=== PATIENT | female | born 1945 | race Two or more races ===

== ENCOUNTER 2017-01-02 10:12 | Emergency (ER) | payer MEDICARE ==
[2017-01-02 10:34] VITALS: BP 152/65; PULSE 84; RESP 20; TEMP 98.1
--- NOTE | 2017-01-02 11:53 | ED ---
General Adult HPI - General Chief complaint: Recheck/Abnormal Lab/Rx Stated complaint: SHOULDER, HIP INJURY FROM FALL Time Seen by Provider: 01/02/17 11:05 Source: patient Mode of arrival: wheelchair Limitations: no limitations, physical limitation - History of Present Illness Initial comments: This 71-year-old white female presents with with the complaint of right shoulder pain. She also has some pain into her right pelvis posteriorly. She apparently was hit by a horse 3 days ago. She states that she was knocked to the ground and developed her current injury. She was seen at [facility] 3 days ago and they did x-rays of her right hip, pelvis, chest, right humerus, and right shoulder. They did note that she has a right proximal humeral fracture and put her in a sling. They did prescribe some Parker for her but she states that she has still had severe pain and this does not seem to be working very well. She is only been taking 1 Parker at a time. She states that she has been having problems ambulating and can only ambulate with her ' s assistance. This was worse on Monday and seems to be improving. She called the orthopedic doctor's office this morning and they sent her to the emergency department for further evaluation and treatment. She denies any head injury, headache, neck pain, or back pain. No other complaints or modifying factors. - Related Data Home Medications Medication Instructions Recorded Confirmed Docusate [Colace] 100 mg PO TID 01/02/17 01/02/17 Hydrocodone/Acetaminophen [Parker 1 tab PO Q4HR PRN 01/02/17 01/02/17 7.5-325] Ibuprofen [Motrin] 600 mg PO Q8HR PRN 01/02/17 01/02/17 metFORMIN HCL [metFORMIN HCL ER] 1,000 mg PO DAILY 01/02/17 01/02/17 Allergies Allergy/AdvReac Type Severity Reaction Status Date / Time No Known Allergies Allergy Verified 01/02/17 11:14 Review of Systems ROS Statement: Those systems with pertinent positive or pertinent negative responses have been documented in the HPI. ROS Other: All systems not noted in ROS Statement are negative. Past Medical History Past Medical History: Diabetes Mellitus History of Any Multi-Drug Resistant Organisms: None Reported Past Surgical History: Hysterectomy Past Psychological History: No Psychological Hx Reported Smoking Status: Never smoker Past Alcohol Use History: None Reported Past Drug Use History: None Reported General Exam - General Exam Comments Initial Comments: GENERAL: The patient is well nourished and well hydrated. VITAL SIGNS: Heart rate, blood pressure, respiratory rate reviewed as recorded in nurse's notes. EYES: Pupils are round and reactive. Extraocular movements are intact. No conjunctival / lid redness or swelling. ENT: No external evidence of injury, swelling, or ecchymosis. Airway is patent. Throat is clear. NECK: Nontender. No swelling or evidence of injury. No subcutaneous emphysema. Trachea is midline. No thyroid mass. HEART: Regular rate and rhythm. Good peripheral pulses. LUNGS/CHEST: Breath sounds clear and equal bilaterally. No rales, rhonchi, or wheezes. No ecchymosis, subcutaneous emphysema, or tenderness. ABDOMEN: Abdomen soft without tenderness. No palpable masses or organomegaly. No peritoneal signs. No abdominal wall swelling or ecchymosis. EXTREMITIES: There is tenderness and swelling noted upon palpation of the right proximal humerus. Attempted range of motion was not completed due to pain. There also is some tenderness in the right posterior pelvis. Is no direct tenderness over the right hip. Normal muscle tone and function. No thoracolumbar tenderness. NEUROLOGIC: Sensation is grossly intact. Cranial nerve exam reveals face is symmetrical, tongue is midline, speech is clear. SKIN: There is significant ecchymosis noted to the right mid humerus. There is some right leg ecchymosis noted as well. No induration or masses noted. PSYCHIATRIC: Alert and oriented. Appropriate behavior and judgment. Limitations: no limitations, physical limitation Course Vital Signs 01/02/17 10:30 Temperature 98.1 F Pulse Rate 84 Respiratory 20 Rate Blood Pressure 152/65 O2 Sat by Pulse 98 Oximetry Medical Decision Making - Medical Decision Making The patient was seen and examined. All diagnostics were reviewed. They bring in a disc from [facility] and these x-rays were reviewed. There is an obvious right proximal humeral neck fracture with displacement. The humerus otherwise does not appear to have any fractures. The chest x-ray and right hip x-rays did not show any acute processes. On the AP pelvis, there appears to potentially be a fracture. The case is discussed with Dr. Adan and he requests that the patient have a computed tomography scan of the right shoulder and the AP pelvis. The patient refuses any pain medications while in the emergency department. The computed tomography scan of the right shoulder shows the obvious fracture. The computed tomography scan of the pelvis shows the possibility of a superior iliac spine and possible sacral fracture which appears overall nondisplaced and minimal. Dr. Adan does want to see her in the office this afternoon so she will be discharged. Final radiologic report is pending. We would like to get her over to his office as soon as possible for further evaluation. The report will be available by the time she sees him in the office. Disposition Clinical Impression: Right humeral fracture, Pelvic fracture Disposition: HOME SELF-CARE Condition: Good Additional Instructions: Please follow-up with Dr. Adan today as discussed. Please go directly to their office and he will for treatment in this afternoon and evaluated here for possible surgery in the near future. Referrals: None,Stated [Primary Care Provider] - 1-2 days Mikhail Casillas MD [STAFF PHYSICIAN] - 1-2 days Time of Disposition: 12:52
--- NOTE | 2017-01-02 12:51 | CT ---
EXAMINATION TYPE: CT pelvis wo con DATE OF EXAM: 01/02/2017 COMPARISON: NONE HISTORY: Fall today with Right sided pain CT DLP: 1026 mGycm Automated exposure control for dose reduction was used. Unenhanced CT of the pelvis was performed. Bone and soft tissue window settings are submitted. FINDINGS: Nondisplaced fracture of the right hemisacrum seen best on images 12 through 18. No additional fractu res are evident. Degenerative changes bilateral hip joint spaces. Trochanteric spur formation. Severe degenerative change lumbar spine. Mild distention small bowel loops reflect mild ileus. IMPRESSION: Nondisplaced fracture of the right hemisacrum.
--- NOTE | 2017-01-02 12:54 | ED ---
Disposition Clinical Impression: Right humeral fracture, Pelvic fracture Disposition: HOME SELF-CARE Condition: Good Instructions: Proximal Humerus Fracture (ED) Additional Instructions: Please follow-up with Dr. Adan today as discussed. Please go directly to their office and he will for treatment in this afternoon and evaluated here for possible surgery in the near future. Referrals: None,Stated [Primary Care Provider] - 1-2 days Mikhail Casillas MD [STAFF PHYSICIAN] - 1-2 days
--- NOTE | 2017-01-02 12:55 | CT ---
EXAMINATION TYPE: CT shoulder RT wo con DATE OF EXAM: 01/02/2017 COMPARISON: NONE HISTORY: Fall today Right sided shoulder pain CT DLP: [address] of the right shoulder with reconstruction imaging. TECHNIQUE: Unenhanced CT of the right shoulder was performed with bone and soft tissue window setting s submitted in the axial coronal and sagittal planes. At a separate workstation 3-D TR imaging was o btained. FINDINGS: Partially comminuted partially impacted fracture involving the right humeral neck with exte nsion into the greater humeral tuberosity. Proximal migration of the distal fracture component with r otation of humeral head. Fracture displacement of 1.5 cm. Hemarthrosis is noted. No additional fractu res are identified within the [id number]. IMPRESSION: 1. Moderately comminuted and partially impacted fracture of the proximal right humerus as discussed.
== END 2017-01-02 13:13 | disposition home or self-care (01) ==
LOC: EC 10:12
DX: S42.201A Unspecified fracture of upper end of right humerus, initial encounter for closed fracture (principal); S32.9XXA Fracture of unspecified parts of lumbosacral spine and pelvis, initial encounter for closed fracture; S80.11XA Contusion of right lower leg, initial encounter; E11.9 Type 2 diabetes mellitus without complications; Z79.84 Long term (current) use of oral hypoglycemic drugs; Z79.899 Other long term (current) drug therapy; W55.12XA Struck by horse, initial encounter; Z53.20 Procedure and treatment not carried out because of patient's decision for unspecified reasons
CPT/HCPCS: 72192; 99284

== ENCOUNTER → 2017-01-02 | Outpatient (CLI) | payer MEDICARE ==
[2017-01-02 16:15] LABS: EKG EKG PERFORMED
[2017-01-02 16:51] LABS: Anion Gap 13 mmol/L; Carbon Dioxide 21 mmol/L (22-30); Chloride 103 mmol/L (98-107); Potassium 4.2 mmol/L (3.5-5.1); Sodium 137 mmol/L (137-145)
[2017-01-02 17:01] LABS: INR 0.9 (<1.2); Prothrombin Time 9.7 sec (9.0-12.0)
[2017-01-02 17:39] LABS: Partial Thromboplastin Time 21.6 sec (22.0-30.0)
[2017-01-02 17:44] LABS: Basophils % (A) 0 %; CHCM 31.7; Eosinophils # (A) 0.3 k/uL (0-0.7); Eosinophils % (A) 3 %; HCT 34.9 % (34.0-46.0); HDW 2.37; HGB 10.8 gm/dL (11.4-16.0); Luc # (Auto) 0.16; Luc % (Auto) 2; Lymphocytes % (A) 20 %; MCH 28.6 pg (25.0-35.0); MCHC 31.1 g/dL (31.0-37.0); Mean Platelet Volume 8.3; Monocytes # (A) 0.6 k/uL (0-1.0); Monocytes % (A) 6 %; Neutrophils # (A) 7.1 k/uL (1.3-7.7); Neutrophils % (A) 69 %; RBC 3.79 m/uL (3.80-5.40); RDW 13.7 % (11.5-15.5); WBC 10.3 k/uL (3.8-10.6); WBC (Perox) 10.16
== END | disposition home or self-care (01) ==
LOC: LABPAT 15:30
PROVIDERS: ATTEND Orthopaedic Surgery
DX: Z01.810 Encounter for preprocedural cardiovascular examination (principal); S42.231D 3-part fracture of surgical neck of right humerus, subsequent encounter for fracture with routine healing; Z79.01 Long term (current) use of anticoagulants; Z01.812 Encounter for preprocedural laboratory examination
CPT/HCPCS: 36415; 80051; 85025; 85610; 85730; 93005

== ENCOUNTER 2017-01-03 07:30 | Inpatient (IN) | payer MEDICARE ==
--- NOTE | 2017-01-02 17:42 | HP ---
HISTORY AND PHYSICAL CHIEF COMPLAINT: Right shoulder and right hip pain. HISTORY OF PRESENT ILLNESS: The patient is a 71-year-old retired female who presents with right shoulder and hip pain after an injury on 12/30/2016. She was charged by her horse at her home and thrown to the ground. She denies loss of consciousness. Initially, she was seen at [facility] Emergency Room and was placed in a sling. She presented to [facility] ER today for further evaluation. She had a CT scan of her pelvis and shoulder performed. PAST MEDICAL HISTORY: Significant for type 2 diabetes. PAST SURGICAL HISTORY: Significant for hysterectomy. CURRENT MEDICATIONS: [place], metformin, ibuprofen. ALLERGIES: She denies drug allergies. FAMILY HISTORY: Negative. SOCIAL HISTORY: Negative for current tobacco or alcohol use. REVIEW OF SYSTEMS: Sixteen point review of systems otherwise reviewed and is noncontributory. PHYSICAL EXAMINATION: On examination, the patient is approximately 5 foot 6, 200 pounds of endomorphic habitus. She is alert and oriented x4. She is nontender about the cervical spine with pain with active motion. On examination of her right shoulder, she has large anterior swelling and ecchymosis. She is tender over the proximal humerus. She is nontender about the right wrist and elbow. Her distal neurovascular exam appears intact in the right upper extremity. No point tenderness about the left upper extremity is noted. She has painless passive motion of right hip. She is mildly tender over the right sacroiliac joint. The pelvis is stable to external rotation stress. Her distal neurovascular exam appears intact in the lower extremities. IMAGING PROCEDURE: X-rays to include 2 views of the right shoulder obtained in the office show a comminuted/displaced three-part proximal right proximal humerus fracture. CT scan of the pelvis shows a nondisplaced right sacral ala fracture. The pelvic ring appears intact. CT scan of the right shoulder shows a comminuted 3 part proximal humerus fracture with significant displacement. IMPRESSION: 1. Displaced/comminuted right three-part proximal humerus fracture. 2. Right sacral ala fracture. 3. Kbo-msqzuxv-clmssuxbb diabetes. 4. Increased body mass index. RECOMMENDATIONS: I talked to the patient and her regarding her treatment options. With the degree of initial comminution and displacement of her three-part proximal humerus fracture, I recommend proceeding with surgery. Operative options were discussed to include open reduction and internal fixation versus hemiarthroplasty versus reverse total shoulder arthroplasty. We will likely proceed with right reverse total shoulder arthroplasty. Risks and benefits were discussed at length in layman's terms. We will institute DVT prophylaxis postoperatively. MMODL / IJN: [id number] /
[~2017-01-03 07:30] MED LIST: ACETAMINOPHEN TAB 500 MG TAB PO ONE; MELOXICAM 7.5 MG TAB PO ONE; TRANEXAMIC ACID 1,000 MG in SODIUM CHLORIDE 0.9% 100 ML IVPB ONE; ceFAZolin 2 GM in SODIUM CHLORIDE 0.9% 100 ML IVPB ONE; ceFAZolin IN SWFI 2 GM/20 ML SYRINGE IVP ONE
[2017-01-03] MEDS ORDERED: LIDOCAINE 1% 20 ML VIAL (10MG/ML) FOR IV START INTRADERMA ONE (14:16)
[2017-01-03] MEDS ORDERED: MIDAZOLAM 2 MG/2 ML VIAL IVP ONE (14:27)
[2017-01-03] MEDS ORDERED: LACTATED RINGERS 1,000 ML IV ONE (14:27)
[2017-01-03] MEDS ORDERED: fentaNYL (PF) 50 MCG/ML 2 ML AMP IVP ONE (14:29)
[2017-01-03 14:38] LABS: Glucose,Whole Blood 107 mg/dL (75-99)
[2017-01-03] MEDS ORDERED: ONDANSETRON 4 MG/2 ML VIAL IVP ONE (14:59)
[2017-01-03] MEDS ORDERED: DEXAMETHASONE SOD PHOSPHATE 10 MG/ML 1 ML VIAL IV ONE (15:00)
[2017-01-03] MEDS ORDERED: ceFAZolin 3,000 MG in SODIUM CHLORIDE 0.9% IRRIGATIO 3,000 ML IRRIGATION ONE (17:14)
[2017-01-03] MEDS ORDERED: HYDROmorphone 0.5 MG/0.5 ML SYRINGE IVP PRN ×2 (18:17)
[2017-01-03] MEDS ORDERED: ONDANSETRON 4 MG/2 ML VIAL IVP PRN (18:17)
[2017-01-03] MEDS ORDERED: SENNOSIDES-DOCUSATE SODIUM 1 EACH TAB PO PRN (18:17)
[2017-01-03] MEDS ORDERED: HYDROcodone/APAP 7.5-325MG 1 EACH TAB PO PRN (18:22)
--- NOTE | 2017-01-03 18:40 | P.OP ---
Date of Procedure: 01/03/17 Preoperative Diagnosis: Displaced right 4 part proximal humerus fracture Postoperative Diagnosis: Same Procedure(s) Performed: Right reverse shoulder arthroplasty Implants: Delta Xtend size 10 cemented long humeral component with size 1 epiphysis, 38+6 articular surface, 38 mm glenosphere with standard base plate. Anesthesia: JOEYA Surgeon: Mikhail Casillas Aerodynamics Teacher #1: Jayden Glaser Estimated Blood Loss (ml): 150 Pathology: other (Humeral head) Condition: stable Disposition: PACU Indications for Procedure: The patient's 71-year-old female who presents after sustaining an injury recently to her right shoulder. She was noted to have a displaced 4 part proximal humerus fracture. A discussion of the risks and benefits of operative intervention versus conservative treatment was made with the patient and her . They opted to proceed with surgery. With the degree of initial displacement and fragmentation, they opted to proceed with reverse shoulder arthroplasty. Risks and benefits of this procedure to include infection, neurovascular injury, development of blood clots, possible component loosening, possible dislocation, and possible need for subsequent procedures was discussed. Informed consent was obtained. Operative Findings: As below Description of Procedure: The patient was brought to the operating room, and after induction of general anesthesia was placed in the beachchair position. The bony prominences were appropriately padded. The right upper extremity was prepped and draped in normal fashion. A deltopectoral incision was then made just lateral to the coracoid process extending approximately 12 cm. Skin was incised sharply. Subcutaneous tissues were divided bluntly. Electrocautery was used for hemostasis. The deltopectoral interval was identified and the cephalic vein was gently retracted laterally with the deltoid. Subdeltoid adhesions were bluntly dissected. A self-retaining retractor was placed. The upper one third of the pectoralis tendon was released with electrocautery to help facilitate exposure. The biceps was identified. It was tenotomized and lateral retract the bicipital groove. The proximal humeral fracture was then dissected into the lesser and greater tuberosities along with the head fragment. The head was extracted. There was significant metaphyseal fragmentation. The glenoid was then exposed. A guidepin was placed into the inferior aspect of the glenoid with slight inferior tilt. The glenoid was then reamed down to bleeding bony surface. The Profore reamer was utilized. The central peg hole was drilled. A standard glenosphere baseplate was then inserted and impacted. 3 locking screws of the appropriate length were then placed with good purchase. They were then locked. A 38 mm glenosphere was then placed and secured. Attention was then paid towards preparing the proximal humerus. The alignment guide was placed along the proximal humeral shaft. I planned on 20 of retroversion. The canal was reamed by hand up to size 10. A trial long size 10 stem was inserted and held in place with the clamp. The height was adjusted to restore appropriate soft tissue tension. A 38 mm +6 trial articular surface was placed. The shoulder was gently reduced. It was taken through range of motion and felt to be stable in flexion and extension with internal and external rotation. I felt there was adequate baptist of soft tissue tension judging off the conjoined tendon. The shoulder was gently dislocated. The trial components were then removed. Cement was then placed in the humeral shaft and pressurized by hand. The final size 12 long humeral stem with a size 1 epiphysis was inserted in approximately 20 of retroversion. Previously predetermined height. This was held in place with the clamp until the cement had sufficiently hardened. Trial reduction was again obtained with a 38 mm +6 trial articular surface. Again I felt there was adequate baptist of soft tissue tension and stability in flexion and extension with internal and external rotation. The shoulder was gently dislocated and the trial articular surface was removed. The final 38 mm +6 articular surface was gently impacted. The shoulder was gently relocated and taken through range of motion and felt to be stable. Pulsatile lavage was utilized. The greater and lesser tuberosity were secured to each other with #2 Ethibond suture. The rotator interval was closed in a similar fashion. The deltopectoral interval was closed with interrupted 2-0 Vicryl sutures. The skin was reapproximated with 3- 0 subcuticular Prolene suture. Steri-Strips were applied. A sterile dressing was applied in addition to a sling. The patient was awoken from general anesthesia and transferred to recovery room in good condition. Blood loss was estimated at 150 mL. No complications were incurred. Sponge and needle counts were correct in the case.
--- NOTE | 2017-01-03 18:45 | XR ---
EXAMINATION TYPE: XR shoulder limited RT DATE OF EXAM: 01/03/2017 COMPARISON: NONE HISTORY: Postop TECHNIQUE: Single view FINDINGS: There is a right shoulder prosthesis. Components appear in anatomic position. IMPRESSION: No complicating process seen.
[2017-01-03 19:01] VITALS: RESP 16
[2017-01-03] MEDS: metFORMIN 500 MG TAB PO SCH (21:31)
[2017-01-03] MEDS: LISINOPRIL-HCTZ 10-12.5 MG 1 EACH TAB PO SCH (21:36)
[2017-01-03] MEDS ORDERED: LATANOPROST 0.005% OPHTH DROPS 2.5 ML BTL RIGHT EYE SCH (22:00)
--- NOTE | 2017-01-03 22:13 | CONS ---
CONSULTATION DATE OF CONSULTATION: 01/03/2017 REASON FOR CONSULTATION: Medical management requested by Dr. Casillas. CONSULTATION: This is a 71-year-old patient who was kicked by horse 3 days ago, fell on the right side, injuring her right shoulder, right shoulder, also got a small crack on the sacrum. The patient as a result had a moderately comminuted partially impacted fracture of the proximal right humerus. The patient today has undergone right reverse shoulder arthroplasty. Dressing in place and pain is controlled. Chronic stable medical conditions include diabetes, glaucoma and arthritis in other joints. REVIEW OF SYSTEMS: CONSTITUTIONAL: None. HEENT none. RESPIRATORY: None. CARDIOVASCULAR: None. GASTROINTESTINAL: None. MUSCULOSKELETAL: Pain in the right hip, right knee. DERMATOLOGICAL, HEMATOLOGIC, LYMPHATIC: None. PSYCHIATRY: None. NEUROLOGICAL: None. PAST HISTORY: Diabetes mellitus type 2, glaucoma, osteoarthritis of the hip. PAST SURGICAL HISTORY: Hysterectomy. SOCIAL HISTORY: . No smoking. No alcohol. FAMILY HISTORY: Reviewed. Noncontributory to presentation. HOME MEDICATIONS: 1. Metformin ER 1000 mg p.o. daily. 2. Motrin 600 mg q.8h p.r.n. 3. [place] 7.5, 1 tablet q.4 p.r.n. 4. Colace 100 mg p.o. t.i.d. ALLERGIES: None. EXAMINATION: Temperature 98.3, pulse 99, respiratory rate 16, blood pressure 166/72, pulse ox 98% on 2L GENERAL APPEARANCE: Well-built, BMI 34.1, lying in bed, comfortable. EYES: Pupils equal. Conjunctivae normal. HEENT: Oral cavity normal. NECK: JVD not raised. Mass not palpable. RESPIRATORY: Effort normal. LUNGS: Clear. CARDIOVASCULAR: First and second heart sounds normal. No edema. ABDOMEN: Soft, nontender. Liver and spleen not palpable. LYMPHATIC: No lymph nodes palpable in neck or axillae. PSYCHIATRY: Alert and oriented x3. Mood and affect normal. EXTREMITIES: Right shoulder in a dressing. Right arm in a sling. INVESTIGATIONS: Accu-Cheks 107. ASSESSMENT: 1. Right shoulder reverse arthroplasty secondary to a fracture of the proximal humerus. 2. Diabetes mellitus type 2 on oral hypoglycemic. 3. Primary osteoarthritis of the right hip. 4. Obesity, body mass index 34.1. 5. Essential hypertension. PLAN: Patient's metformin will be resumed in the morning. Accu-Cheks will be followed. Sliding scale insulin. Will add lisinopril, hydrochlorothiazide. Care was discussed the patient and at the bedside. Thank you, Dr. Casillas. DERRELL / MIRI: [id number] /
[2017-01-03] MEDS: ceFAZolin IN SWFI 2 GM/20 ML SYRINGE IVP SCH (23:56)
[2017-01-04] MEDS: HYDROcodone/APAP 7.5-325MG 1 EACH TAB PO PRN ×3 (04:52→16:29)
[2017-01-04 07:08] LABS: Glucose,Whole Blood 124 mg/dL (75-99)
[2017-01-04] MEDS: ceFAZolin IN SWFI 2 GM/20 ML SYRINGE IVP SCH (08:19)
[2017-01-04] MEDS: metFORMIN 500 MG TAB PO SCH (08:22)
[2017-01-04] MEDS: LISINOPRIL-HCTZ 10-12.5 MG 1 EACH TAB PO SCH (08:23)
--- NOTE | 2017-01-04 08:36 | P.ONQ ---
Anesthesiology Proc Note - PNB - Peripheral Nerve Block Performed Right Interscalene Single Time Out Performed: Yes Indication: Acute Post-Operative Pain, Requested by physician Sedation Type: Sedate with meaningful contact maintained Preparation: Sterile Prep Needle Size: 50mm (2") Needle Gauge: 21 Technique: Ultrasound (ropi .5% 20cc and xylo 2% 15cc) Blood Aspirated: No Pain Paresthesia on Injection Noted: No Resistance on Injection: Normal Events: Uneventful and Well Tolerated
[2017-01-04] MEDS ORDERED: ENOXAPARIN 40 MG/0.4 ML SYRINGE SQ SCH (09:00)
[2017-01-04 09:46] VITALS: TEMP 99.4
[2017-01-04 10:05] LABS: Basophils % (A) 0 %; CH 28.7; CHCM 30.9; Eosinophils # (A) 0.2 k/uL (0-0.7); Eosinophils % (A) 2 %; HDW 2.28; Hypochromasia Slight; Luc # (Auto) 0.12; Luc % (Auto) 1; Lymphocytes # (A) 2.6 k/uL (1.0-4.8); Lymphocytes % (A) 23 %; MCH 29.4 pg (25.0-35.0); MCHC 31.5 g/dL (31.0-37.0); MCV 93.3 fL (80.0-100.0); Mean Platelet Volume 9.2; Monocytes # (A) 0.9 k/uL (0-1.0); Monocytes % (A) 8 %; Neutrophils # (A) 7.5 k/uL (1.3-7.7); Neutrophils % (A) 66 %; RBC 3.11 m/uL (3.80-5.40); RDW 14.8 % (11.5-15.5); WBC 11.3 k/uL (3.8-10.6); WBC (Perox) 11.25
[2017-01-04 10:12] LABS: HGB 9.1 gm/dL (11.4-16.0)
--- NOTE | 2017-01-04 10:34 | P.PN ---
Subjective Progress Note Date: 01/04/17 Principal diagnosis: Status post reverse right total shoulder arthroplasty Patient is seen today resting in her hospital bed, she appears comfortable. She is utilizing the arm sling at this time. Her pain is controlled at this time. She has not been up ambulating at this point. She denies any headaches, lightheadedness, chest pain or shortness of breath. Objective - Vital Signs Vital signs: Vital Signs Temp 99.4 F 01/04/17 07:00 Pulse 82 01/04/17 07:00 Resp 16 01/04/17 07:00 BP 101/49 01/04/17 07:00 Pulse Ox 94 L 01/04/17 07:00 Intake & Output 01/03/17 01/04/17 01/04/17 18:59 06:59 18:59 Intake Total 701 555 Output Total 250 800 250 Balance 451 -245 -250 Weight 95.708 kg Intake: IV 701 5 Oral 550 Output: Urine 100 800 250 Uretheral ([place]) 300 100 Estimated Blood Loss 150 Other: Voiding Method Indwelling Catheter Indwelling Catheter - Exam Right upper extremity: Incision is clean, dry, and intact. The prineo tape is in good condition. There is minimal soft tissue swelling and ecchymosis surrounding the medial and lateral aspects of the incision. Calf is soft, no tenderness with palpation. Plantar flexion, dorsiflexion, EHL, FHL are intact. Sensory exam to light touch throughout the extremity is intact, dorsal pedis pulses 2+. - Labs CBC & Chem 7: 01/04/17 09:12 Labs: Abnormal Lab Results - Last 24 Hours (Table) 01/03/17 01/04/17 01/04/17 Range/Units 14:18 07:04 09:12 WBC 11.3 H (3.8-10.6) k/uL RBC 3.11 L (3.80-5.40) m/uL Hgb 9.1 L D (11.4-16.0) gm/dL Hct 29.0 L (34.0-46.0) % POC Glucose (mg/dL) 107 H 124 H (75-99) mg/dL Assessment and Plan Plan: Assessment: 1. Postop day #1 status post reverse right total shoulder arthroplasty Plan: 1. Pain control, continue use of oral medication 2. GI and DVT prophylaxis, continue Lovenox during inpatient stay 3. Utilize arm sling/daily dressing changes 4. Encourage incentive spirometer 5. Pendular exercises 6. Medical recommendations 7. Discharge planning: Patient will may be discharged home today Time with Patient: Less than 30
[2017-01-04 11:49] LABS: Glucose,Whole Blood 156 mg/dL (75-99)
[2017-01-04 16:18] VITALS: BP 118/76; PULSE 74
--- NOTE | 2017-01-04 18:02 | PN ---
PROGRESS NOTE PRESENTING COMPLAINT: Right shoulder surgery. INTERVAL HISTORY: Patient is status post right shoulder surgery. Some pain is present. Did tolerate breakfast. No nausea, vomiting. No chest pain. is at bedside. REVIEW OF SYSTEMS: Done for constitutional, cardiovascular, GI, pulmonary, musculoskeletal; relevant findings as above. CURRENT MEDICATIONS: Reviewed. PHYSICAL EXAMINATION: Temperature 99.4, pulse 52, respiration 16, blood pressure 101/49, pulse ox 94% on room air. GENERAL APPEARANCE: Sitting up. Comfortable. EYES: Pupils equal.. Conjunctivae normal. NECK: JVD not raised. Mass not palpable. RESPIRATORY: Effort normal. Lungs are clear. CARDIOVASCULAR: First and second sounds normal. No edema. ABDOMEN: Soft, nontender. Liver and spleen not palpable. PSYCHIATRY: Alert and oriented x3. Mood and affect normal. Right shoulder in a dressing. INVESTIGATIONS: White count 11.3, hemoglobin 9.1. ASSESSMENT: 1. Right shoulder reverse arthroplasty secondary to fracture of the proximal humerus. 2. Diabetes mellitus, type 2, on oral hypoglycemic. 3. Primary osteoarthritis of the right hip. 4. Obesity; body mass index of 34.1. 5. Essential hypertension. PLAN: Patient is doing well. Continue current medication and treatment plan. Care was discussed the patient. MMODL / IJN: [id number] /
== END 2017-01-04 17:33 | disposition home health service (06) | DRG 483 ==
LOC: 2ORMAIN 12:39 → 3SUR 18:40
PROVIDERS: ADMIT Orthopaedic Surgery; ATTEND Orthopaedic Surgery
PROC: 0RRJ00Z Replacement of Right Shoulder Joint with Reverse Ball and Socket Synthetic Substitute, Open Approach (ICD-10-PCS; principal; 2017-01-03 07:30)
DX: S42.241A 4-part fracture of surgical neck of right humerus, initial encounter for closed fracture (principal); S32.119A Unspecified Zone I fracture of sacrum, initial encounter for closed fracture; E11.9 Type 2 diabetes mellitus without complications; I10 Essential (primary) hypertension; E66.9 Obesity, unspecified; H40.9 Unspecified glaucoma; M16.11 Unilateral primary osteoarthritis, right hip; M25.561 Pain in right knee; Z68.34 Body mass index [BMI] 34.0-34.9, adult; Z79.84 Long term (current) use of oral hypoglycemic drugs; Z79.899 Other long term (current) drug therapy; W55.12XA Struck by horse, initial encounter; Y92.9 Unspecified place or not applicable
CPT/HCPCS: 64415; 83036; 85025

== ENCOUNTER → 2018-09-07 | Outpatient (CLI) | payer MEDICARE ==
--- NOTE | 2018-09-07 10:05 | US ---
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 EXAM MEASUREMENTS: RIGHT: Peak Systolic Velocity (PSV) cm/sec ----- Right CCA: 117.1 ----- Right ICA: 154.7 ----- Right ECA: 153.0 ICA/CCA ratio: 1.3 RIGHT: End Diastole cm/sec ----- Right CCA: 19.8 ----- Right ICA: 33.9 ----- Right ECA: 0.0 LEFT: Peak Systolic Velocity (PSV) cm/sec ----- Left CCA: 135.0 ----- Left ICA: 111.7 ----- Left ECA: 122.1 ICA/CCA ratio: 0.8 LEFT: End Diastole cm/sec ----- Left CCA: 23.6 ----- Left ICA: 40.2 ----- Left ECA: 0.0 VERTEBRALS (direction of flow): Right Vertebral: Antegrade Left Vertebral: Antegrade Rhythm: Normal Elevated velocities throughout. Vessels are tortuous. Thyroid is grossly enlarged and heterogeneous. IMPRESSION: 1. Elevated velocities are seen throughout without abnormally elevated internal carotid artery to co mmon carotid artery ratio. Overall findings are indicative of hypertension. CTA neck could assess for superimposed stenosis. 2. Incidentally noted partially visualized diffusely heterogenous and enlarged thyroid gland. Thyroid ultrasound is recommended for further characterization. Criteria for Assigning % of Stenosis / Diameter reduction (Estimation based on the indirect measurements of the internal carotid artery velocities (ICA PSV). 1. Normal (no stenosis)=ICA PSV < 125 cm/s: ratio < 2.0: ICA EDV<40 cm/s. 2. Less than 50% stenosis=ICA PSV < 125 cm/s: ratio < 2.0: ICA EDV<40 cm/s. 3. 50 to 69% stenosis=ICA PSV of 125 to 230 cm/s: ration 2.0 ? 4.0: ICA EDV 40-100 cm/s. 4. Greater than 70% stenosis to near occlusion= ICA PSV > 230 cm/s: ratio > 4.0: ICA EDV > 100 cm/s. 5. Near occlusion= ICA PSV velocities may be low or undetectable: variable ratio and ICA EDV. 6. Total occlusion=unable to detect flow.
== END | disposition home or self-care (01) ==
LOC: RADUSWWP 09:23
PROVIDERS: ATTEND Family Medicine
DX: I65.29 Occlusion and stenosis of unspecified carotid artery (principal)
CPT/HCPCS: 93880

== ENCOUNTER → 2018-09-25 | Outpatient (CLI) | payer MEDICARE ==
--- NOTE | 2018-09-25 14:05 | CT ---
EXAMINATION TYPE: CT angio neck DATE OF EXAM: 09/25/2018 HISTORY: Abnormal imaging COMPARISON: Doppler carotid dated 09/07/2018 CT DLP: 319 mGycm. Automated Exposure Control for Dose Reduction was Utilized. TECHNIQUE: CTA scan of the neck is performed without and with IV Contrast, patient injected with 100 ml mL of Isovue 370, axial images are obtained, coronal and sagittal reformatted images are reviewed . Three-D reconstructed images are created on an independent workstation and reviewed. FINDINGS: Carotid/Vascular Structures: Normal arch of the aorta. Normal three-vessel takeoff. Bilateral vertebr al arteries are patent. 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 Bilateral common carotid arter ies are patent with minimal atheromatous disease seen in the right MID and distal and left distal com mon carotid artery. Bilateral carotid bifurcations do not demonstrate calcified atherosclerotic plaqu e. Internal carotid arteries are patent without evidence of significant stenosis, occlusion or dissec tion. No aneurysm is identified. Other: Right maxillary mucosal thickening. Cervical spondylosis. Heterogeneous appearance of the thyr oid gland. Visualized upper lungs are clear. IMPRESSION: Minimal noncalcified atherosclerotic sclerotic plaque seen in the common carotid arteries and carotid bifurcations, right greater than left. No evidence of significant stenosis. Heterogeneous thyroid gland, may be related to goiter, but mass is not excluded. Further evaluation m ay be obtained with dedicated thyroid ultrasound.
== END | disposition home or self-care (01) ==
LOC: RADCTMAIN 10:48
PROVIDERS: ATTEND Family Medicine
DX: I65.21 Occlusion and stenosis of right carotid artery (principal)
CPT/HCPCS: 82565; 84520; 70498; 36415; Q9967

== ENCOUNTER → 2018-12-20 | Outpatient (CLI) | payer MEDICARE ==
--- NOTE | 2018-12-20 16:18 | US ---
EXAMINATION TYPE: US thyroid st tissue head/neck DATE OF EXAM: 12/20/2018 COMPARISON: CTA neck September 25, 2018 CLINICAL HISTORY: E04.9 Goiter. GLAND SIZE: Right Lobe: 4.9 x 3.0 x 1.9 cm Overall Parenchyma: heterogenous Left Lobe: 6.1 x 2.6 x 1.9 cm Overall Parenchyma: heterogeneous Isthmus Thickness: 0.6 cm NODULES RIGHT: # of nodules measured on right: 2 1. 1.3 x 1.1 x 1.3 cm hypoechoic mixed nodule at the upper pole with well-defined margins. This no dule is wider than tall and shows intranodular vascularity. No prior 2. 1.5 X 0.9 x 1.5 cm echogenic solid nodule at the mid pole with poorly defined margins. This nodu le is wider than tall and shows intranodular vascularity. No prior LEFT: # of nodules measured on left: 0 ISTHMUS: # of nodules measured in the isthmus: 1 1. 2.2 X 1.4 x 2.0 cm hypoechoic solid nodule at the left pole with well-defined margins. This nod ule is wider than tall and shows intranodular vascularity. No prior Bilateral neck scanned, no evidence of lymphadenopathy. Markedly heterogeneous slightly enlarged thyroid gland with bilateral thyroid nodules. IMPRESSION: Bilateral thyroid nodules greater than 1 cm including dominant 2.2 cm solid nodule left thyroid lobe. Findings correlate with recent CTA neck study.
== END | disposition home or self-care (01) ==
LOC: RADUSWWP 15:38
PROVIDERS: ATTEND Internal Medicine Endocrinology, Diabetes & Metabolism
DX: E04.2 Nontoxic multinodular goiter (principal)
CPT/HCPCS: 76536

== ENCOUNTER → 2019-01-26 | Outpatient (CLI) | payer MEDICARE ==
[2019-01-26 17:35] LABS: T4, Free (Free Thyroxine) 1.2 ng/dL (0.80-1.80)
== END | disposition home or self-care (01) ==
LOC: LABWHC1 11:07
PROVIDERS: ATTEND Internal Medicine Endocrinology, Diabetes & Metabolism
DX: E03.8 Other specified hypothyroidism (principal)
CPT/HCPCS: 36415; 84439; 84443; 84480

== ENCOUNTER → 2019-11-14 | Outpatient (CLI) | payer MEDICARE ==
--- NOTE | 2019-11-15 06:56 | US ---
EXAMINATION TYPE: US thyroid st tissue head/neck DATE OF EXAM: 11/14/2019 COMPARISON: US CLINICAL HISTORY: E04.2 Nontoxic multinodular goiter. F/U goiter GLAND SIZE: Right Lobe: 5.1 x 2.4 x 1.9 cm Overall Parenchyma: heterogenous Left Lobe: 5.6 x 2.5 x 3.1 cm Overall Parenchyma: heterogeneous Isthmus Thickness: 0.3 cm Bilateral neck scanned, no evidence of lymphadenopathy. Normal thyroid tissue not identified on today 's exam/ Entire thyroid gland heterogeneous and lobulated/ On today's exam thyroid felt to be grossly heterogeneous, no definite nodules visualized IMPRESSION: Enlarged and heterogenous thyroid gland likely in the basis of multinodular goiter.
== END | disposition home or self-care (01) ==
LOC: RADUSWWP 15:40
PROVIDERS: ATTEND Internal Medicine Endocrinology, Diabetes & Metabolism
DX: E04.2 Nontoxic multinodular goiter (principal)
CPT/HCPCS: 76536

== ENCOUNTER → 2019-11-19 | Outpatient (CLI) | payer MEDICARE ==
[2019-11-19 21:22] LABS: African American GFR (CKD) 73.5 (60.0-200.0); Albumin 4.6 g/dL (3.80-4.90); Anion Gap 10.9 mmol/L (4.00-12.00); Calcium 9.3 mg/dL (8.7-10.3); Carbon Dioxide 24.1 mmol/L (21.6-31.8); Chol/HDL Ratio 4.17; Globulin 2.3 g/dL (1.6-3.3); LDL Cholesterol,Calculated 126.8 mg/dL (0.0-131.0); Non-African American GFR(CKD) 63.4 (60.0-200.0); Potassium 5.2 mmol/L (3.5-5.5); Total Bilirubin 0.6 mg/dL (0.2-1.2); Total Protein 6.9 g/dL (6.2-8.2); VLDL Calculation 25.2 mg/dL (5.00-40.00)
[2019-11-19 21:31] LABS: T4, Free (Free Thyroxine) 1.4 ng/dL (0.80-1.80)
[2019-11-19 21:56] LABS: Hemoglobin A1C 8.4 % (4.0-6.0)
[2019-11-20 10:02] LABS: Urine Creatinine 75.7 mg/dL
== END | disposition home or self-care (01) ==
LOC: LABWHC1 12:07
PROVIDERS: ATTEND Internal Medicine Endocrinology, Diabetes & Metabolism
DX: E04.2 Nontoxic multinodular goiter (principal); E11.65 Type 2 diabetes mellitus with hyperglycemia
CPT/HCPCS: 36415; 80053; 80061; 82043; 82570; 83036; 84439; 84443; 84445; 84480

== ENCOUNTER → 2020-03-12 | Outpatient (CLI) | payer MEDICARE ==
[2020-03-12 21:25] LABS: African American GFR (CKD) 64.7 (60.0-200.0); Albumin 4.9 g/dL (3.80-4.90); Albumin/Globulin Ratio 2.58 (1.60-3.17); Anion Gap 8.3 mmol/L (4.00-12.00); Calcium 9.5 mg/dL (8.7-10.3); Carbon Dioxide 28.7 mmol/L (21.6-31.8); Chol/HDL Ratio 3.88; Globulin 1.9 g/dL (1.6-3.3); LDL Cholesterol,Calculated 119.6 mg/dL (0.0-131.0); Non-African American GFR(CKD) 55.8 (60.0-200.0); Total Bilirubin 0.5 mg/dL (0.3-1.2); Total Protein 6.8 g/dL (6.2-8.2); VLDL Calculation 24.4 mg/dL (5.00-40.00)
[2020-03-12 21:34] LABS: T4, Free (Free Thyroxine) 1.6 ng/dL (0.80-1.80)
[2020-03-12 21:51] LABS: Urine Creatinine 93.4 mg/dL
[2020-03-12 22:57] LABS: Hemoglobin A1C 6.8 % (4.0-6.0)
== END | disposition home or self-care (01) ==
LOC: LABWHC1 11:00
PROVIDERS: ATTEND Internal Medicine Endocrinology, Diabetes & Metabolism
DX: E11.65 Type 2 diabetes mellitus with hyperglycemia (principal); E04.2 Nontoxic multinodular goiter; E05.90 Thyrotoxicosis, unspecified without thyrotoxic crisis or storm
CPT/HCPCS: 36415; 80053; 80061; 82043; 82570; 83036; 84439; 84443; 84480

== ENCOUNTER → 2020-07-16 | Outpatient (CLI) | payer MEDICARE ==
[2020-07-17 16:38] LABS: T4, Free (Free Thyroxine) 1.4 ng/dL (0.80-1.80)
[2020-07-17 17:07] LABS: African American GFR (CKD) 64.3 (60.0-200.0); Albumin 4.7 g/dL (3.80-4.90); Albumin/Globulin Ratio 2.04 (1.60-3.17); Calcium 9.8 mg/dL (8.7-10.3); Chol/HDL Ratio 4.41; Globulin 2.3 g/dL (1.6-3.3); LDL Cholesterol,Calculated 134.8 mg/dL (0.0-131.0); Non-African American GFR(CKD) 55.5 (60.0-200.0); Potassium 4.7 mmol/L (3.5-5.5); Total Bilirubin 0.7 mg/dL (0.3-1.2); VLDL Calculation 22.2 mg/dL (5.00-40.00)
[2020-07-17 21:15] LABS: Urine Creatinine 118.6 mg/dL
== END | disposition home or self-care (01) ==
LOC: LABWHC1 11:32
PROVIDERS: ATTEND Internal Medicine Endocrinology, Diabetes & Metabolism
DX: E11.65 Type 2 diabetes mellitus with hyperglycemia (principal); E04.2 Nontoxic multinodular goiter
CPT/HCPCS: 36415; 80053; 80061; 82043; 82570; 83036; 84439; 84443

== ENCOUNTER → 2020-12-08 | Outpatient (CLI) | payer MEDICARE ==
[2020-12-08 19:58] LABS: African American GFR (CKD) 73.2 (60.0-200.0); Albumin 4.4 g/dL (3.8-4.9); Albumin/Globulin Ratio 1.84 (1.60-3.17); Anion Gap 11.9 mmol/L (4.00-12.00); BUN/Creat Ratio 15.59 Ratio (12.00-20.00); Calcium 9.4 mg/dL (8.7-10.3); Carbon Dioxide 24.4 mmol/L (21.6-31.8); Chol/HDL Ratio 3.64 Ratio; Globulin 2.4 g/dL (1.6-3.3); LDL Cholesterol,Calculated 112.3 mg/dL (0.0-131.0); Non-African American GFR(CKD) 63.2 (60.0-200.0); Potassium 4.7 mmol/L (3.5-5.5); Total Bilirubin 0.4 mg/dL (0.30-1.20); Total Protein 6.8 g/dL (6.2-8.2); Triglycerides 98.4 mg/dL (0.00-149.00); VLDL Calculation 19.68 mg/dL (5.00-40.00)
== END | disposition home or self-care (01) ==
LOC: LABWHC1 09:47
PROVIDERS: ATTEND Internal Medicine Endocrinology, Diabetes & Metabolism
DX: E11.65 Type 2 diabetes mellitus with hyperglycemia (principal)
CPT/HCPCS: 36415; 80053; 80061; 83036